=== PATIENT | female | born 1985 | race Two or more races ===

== ENCOUNTER 2022-04-18 06:00 | Inpatient (IN) | payer OTHER | END 2022-04-20 09:37 | disposition home or self-care (01) | DRG 743 | LOC: O/R 06:00 → OB/GYN 09:54 | PROVIDERS: ADMIT Obstetrics & Gynecology | PROC: 0UT90ZZ Resection of Uterus, Open Approach (ICD-10-PCS; principal; 2022-04-18) | PROC: 0UT70ZZ Resection of Bilateral Fallopian Tubes, Open Approach (ICD-10-PCS; 2022-04-18) | DX: D25.1 Intramural leiomyoma of uterus (principal); D25.2 Subserosal leiomyoma of uterus; N80.0 Endometriosis of uterus; N84.0 Polyp of corpus uteri; N72 Inflammatory disease of cervix uteri; Z20.822 Contact with and (suspected) exposure to COVID-19 ==